=== PATIENT | female | born 1995 | race American Indian/Alaskan Native ===

== ENCOUNTER 2020-10-06 06:17 | Emergency (ER) | payer OTHER, MEDICAID ==
[2020-10-06] MEDS ORDERED: Bacitracin Oint 1 GM U/D Packet TOP ONE (07:23)
[2020-10-06] MEDS ORDERED: Diphtheria,Pertussis(Acell),Tetanus Vaccine 0.5 ML Syringe IM ONE (07:24)
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
== END 2020-10-06 08:06 ==
LOC: JP.ED 06:17
DX: S80.211A Abrasion, right knee, initial encounter (principal); F10.129 Alcohol abuse with intoxication, unspecified; K21.9 Gastro-esophageal reflux disease without esophagitis; Z23 Encounter for immunization; V89.2XXA Person injured in unspecified motor-vehicle accident, traffic, initial encounter; Y92.410 Unspecified street and highway as the place of occurrence of the external cause
CPT/HCPCS: 90471; 90715; 99284